=== PATIENT | male | born 1955 | race Caucasian/White ===

== ENCOUNTER → 2022-08-31 | Outpatient (CLI) | payer MEDICARE, BC, SELFPAY | END | disposition home or self-care (01) | PROVIDERS: PCP Family Medicine | DX: I49.3 Ventricular premature depolarization (principal); R00.2 Palpitations; R94.31 Abnormal electrocardiogram [ECG] [EKG]; R07.89 Other chest pain | CPT/HCPCS: 93225; 93226 ==

== ENCOUNTER → 2022-09-05 | Outpatient (CLI) | payer MEDICARE, BC, SELFPAY ==
--- NOTE | 2022-09-05 17:30 | STRESSREP_ITS ---
Stress Test Report 67-year-old man with a history of chest pain. Resting EKG demonstrates normal sinus rhythm with a rate of 67 bpm normal intervals are noted resting blood pressure is 124/84 mmHg. The patient exercised according to the regular Valdemar protocol for total duration of 9 minutes. The maximum heart rate attained was 155 bpm which was 102% of max i mpacted heart rate the maximum workload was 10.1 metabolic equivalents. At rest there were no ST or T wave changes noted to suggest ischemia. At peak exercise there was 1.[address] depression noted in leads II, III and aVF and V5. The above is suggestive but not diagnostic of ischemia. During recovery there was improvement in the EKG changes by 1 minute. Frequent premature ventri cular complexes were noted during recovery. The peak blood pressure was 160/72 mmHg with a rate-pressure product of 24,000. No clinical angina was noted. Conclusion: Exercise stress test with EKG changes noted suggestive but not diagnostic of ischemia at a high workload. No clinical angina noted.
== END | disposition home or self-care (01) ==
PROVIDERS: PCP Family Medicine
DX: I49.3 Ventricular premature depolarization (principal); R00.2 Palpitations; R94.31 Abnormal electrocardiogram [ECG] [EKG]; R07.89 Other chest pain
CPT/HCPCS: 93017

== ENCOUNTER → 2024-01-17 | Outpatient (CLI) | payer MEDICARE, SELFPAY | END | disposition home or self-care (01) | PROVIDERS: PCP Internal Medicine; Referring Provider Internal Medicine Cardiovascular Disease; Visit Provider Internal Medicine Cardiovascular Disease | DX: R94.31 Abnormal electrocardiogram [ECG] [EKG] (principal); I49.3 Ventricular premature depolarization; Z79.899 Other long term (current) drug therapy | CPT/HCPCS: 93005 ==

== ENCOUNTER → 2024-02-14 | Outpatient (CLI) | payer MEDICARE, SELFPAY ==
--- NOTE | 2024-02-15 11:50 | STRESSREP_ITS ---
Stress Test Report Date: 02/14/2024 Procedure: Exercise tolerance test Indications: Abnormal EKG Consent: Per the patient Procedure: The patient exercised on a Valdemar protocol for 9 minutes achieving a peak heart rate of 151 bpm (100% predicted maximal heart rate) with a peak blood pressure 170/70 mmHg and a peak MET capacity of approximately 10.1 MET's. The baseline ECG demonstrated normal sinus rhythm. The peak exercise ECG demonstrated sinus tachycardia with about 2 mm horizontal to downsloping ST depressions in the inferior and lateral leads. [There were no cardiac dysrhythmias pretest, during exercise, or recovery]. The functional capacity was considered excellent for age. The patient had no complaint of chest discomfort during exercise or recovery. The examination was discontinued secondary to dyspnea. Impression: 1. Technically adequate (percent predicted maximal heart rate greater than 85%) exercise tolerance test 2. Stress test is negative for exercise-induced chest pain. 3. Stress test test positive for exercise-induced EKG changes of ischemia. 4. Functional capacity is excellent for age This note was generated with [employer] software. It may contain incorrect words, spelling, and punctuation that were not noted in checking the note before signing.
== END | disposition home or self-care (01) ==
LOC: CVS 10:00
PROVIDERS: PCP Internal Medicine; Referring Provider Internal Medicine Cardiovascular Disease; Visit Provider Internal Medicine Cardiovascular Disease
DX: I49.3 Ventricular premature depolarization (principal); R00.2 Palpitations; R94.31 Abnormal electrocardiogram [ECG] [EKG]; Z79.899 Other long term (current) drug therapy
CPT/HCPCS: 93017

== ENCOUNTER 2024-04-28 08:27 | Day surgery (SDC) | payer MEDICARE, SELFPAY ==
[2024-04-17 09:38] LABS: Absolute Lymphocyte Count 1.95 X10^3/uL (0.83-4.51); Absolute Neutrophil Count 2.5 X10^3/uL (2.0-7.7); Basophil# 0.05 X10^3/uL; Basophil% 0.9 % (0-1); Eosinophil# 0.39 X10^3/uL; Eosinophils% 7.3 % (0-5); Hematocrit 42.7 % (40-54); Lymphocyte # 1.95 X10^3/ul (0.83-4.51); Lymphocyte % 36.3 % (19-41); Mean Corp Hgb Conc 32.8 g/dL (32-36); Mean Corpuscular Hgb 30.5 pg (27.0-32.0); Mean Platelet Vol. 10.8 fl (6.2-12.0); Monocyte# 0.48 X10^3/uL; Monocyte% 8.9 % (0-10); NRBC Flagged by Analyzer 0 % (0-5); Neutrophil # 2.48 X10^3/uL (2.7-7.7); Neutrophil % 46.2 % (47-70); Platelet Count 192 K/mm3 (150-450); RBC Distribution Width CV 13.1 % (11.6-14.6); RBC Distribution Width SD 44.3 fl (35.1-43.9); Red Blood Count 4.59 M/mm3 (4.6-6.2); White Blood Count 5.4 K/mm3 (4.4-11.0)
[2024-04-17 10:19] LABS: Anion Gap 5 (5-15); BUN 16 mg/dL (7-18); BUN/Creat Ratio 21.9 RATIO (10-20); Calcium,Total 9.5 mg/dL (8.5-10.1); Chloride 108 mmol/L (98-107); Creatinine, Serum 0.73 mg/dL (0.70-1.30); EST Glomerular Filtration Rate 113 mL/min (>60); Est Glom Filt Rate - Afr Amer 137 mL/min (>60); Glucose 96 mg/dL (74-106); Potassium 3.9 mmol/L (3.5-5.1); Sodium Level 142 mmol/L (136-145)
--- NOTE | 2024-04-24 10:22 | RAD_ITS ---
STUDY: X-RAY CHEST REASON FOR EXAM: Male, 68 years old. Preprocedural evaluation. TECHNIQUE: Frontal and lateral views of the chest. COMPARISON: None. FINDINGS: Hyperinflation with scattered healed parenchymal granulomatous calcifications. There is no demonstrated pleural abnormality. Mild cardiomegaly. Normal mediastinum and poly. Normal visualized pulmonary arteries. Aortic tortuosity with calcification. Diffuse moderate thoracic spondylosis with osteopenia. Normal visualized ribs, clavicles, and shoulders. No abnormality of the visualized soft tissue structures of the upper abdomen. RAD/Chest PA and Lateral IMPRESSION: Cardiomegaly with hyperinflation and no acute or active cardiopulmonary disease. Electronically Signed: Chris Montaño MD at 10:55 EDT ,
--- NOTE | 2024-04-24 14:09 | PCM.HP.BLA ---
History and Physical Date of Admission: 04/28/24 Micha Cano is a 68 year old gentleman that presents today for a diagnostic heart catheterization for an abnormal stress test. He had been following with [facility] cardiology for PVCs. He had been seen by EP for this. In September 2022 his atenolol was stopped and he was started on diltiazem. Patient has continued to have PVC burden that was noted on his Apple Watch. With his model and dye person at [facility] it was recommended that he be reevaluated by EP. Patient is wishing to establish here in [place] since they recently moved. With his symptoms his atenolol was decreased to 12 and half milligrams once a day and he was started on low-dose flecainide 50 mg twice daily. He is noted to have a PVC or burden of 2%. Patient did undergo a stress test here at [facility] in February 2024. Patient was able to walk 10 METS on the treadmill. He was noted to have 2 mm horizontal to downsloping ST depressions in the inferior and lateral leads. No images were obtained with this. Echocardiogram in August 2022 demonstrated an ejection fraction of 64%. No valvular abnormalities were noted. Recent lipid panel from PCP demonstrated a total cholesterol of 116, HDL 40, LDL 62. Pt notes that starting in October of 2023 he was having an increase burden in PVCs. He was needing to increase his dose of atenolol. He was then started on a low dose of flecainide this has decreased his PVC burden. He saw EP at [facility], he stopped the atenolol and continued with the flecainide. Per pt stress test was ordered for increase in PVC burden. He does not have any chest pain/heaviness/pressure. He does not have any worsening SOB with exertion. He does sometimes have positional dizziness. He thinks that this is related to his flomax. He does not have any claudication or edema. No Known Allergies Allergy (Unverified 03/17/24 10:24) Medication Instructions Recorded Confirmed Type atorvastatin 40 mg tablet 40 mg PO DAILY 03/17/24 03/17/24 History flecainide 50 mg tablet 50 mg PO Q12H 03/17/24 03/17/24 History meloxicam 15 mg tablet 15 mg PO DAILY PRN 03/17/24 03/17/24 History tamsulosin 0.4 mg capsule (Flomax) 0.4 mg PO QHS 03/17/24 03/17/24 History PFSH Medical History (Updated 03/17/24 @ 10:47 by Jane ALLISON, PA) Hyperlipidemia BPH (benign prostatic hyperplasia) PVC (premature ventricular contraction) Surgical History (Updated 03/17/24 @ 10:43 by Jane ALLISON, PA) H/O knee surgery H/O left inguinal hernia repair Family History (Updated 03/17/24 @ 10:45 by Jane ALLISON, PA) Mother Cancer Father Cancer Social History (Updated 03/17/24 @ 10:46 by Jane ALLISON, PA) household members: spouse Smoking Status: Never smoker alcohol intake: current alcohol intake frequency: holidays/special occasions only ROS Const Const: Negative for fatigue, weakness, headache(s), frequent falls, excessive sweating, weight gain or weight loss Eyes Eyes: Negative for blind spots, loss of peripheral vision, transient loss of vision, blurry vision, change in vision or double vision ENT ENT: Negative for headache(s), dizziness, tinnitus, Nosebleed/epistaxis or balance problems Cardio Chest Pain: No Palpitations: Yes Edema: None Muscle aches with walking: None Resp Respiratory: Negative for SOB with activity, SOB at rest, SOB orthopnea\SOB lying down or Cough GI GI: Negative nausea, vomiting, heartburn, bloating, vomiting blood/hematemesis, bright, red blood in stools or black,tarry stools : Negative for hematuria Musc Musc: Negative for muscle aches/ myalgia, muscle weakness, joint pain or balance problems Skin Skin: Negative rash or wounds Neuro Neuro: Negative for dizziness, lightheadedness, near syncope, syncope, orthostatic symptoms, frequent falls, headache(s), weakness, confusion, memory loss, restless legs, blurry vision or double vision [place] Hematologic/Lymphatic: Negative for easy bleeding or easy bruising Endo Endo: Negative for fatigue, cold intolerance, heat intolerance or excessive sweating Psych Psych: Negative for anxiety or depression Allergy Allergy/Immunology: Negative for rash Cardiology Exam Const Appearance: cooperative, healthy appearing, comfortable, no acute distress and well developed Orientation: alert, awake and oriented x3 Head Head: normal to inspection Ears: hearing grossly normal bilaterally Nose: external nose normal Face and Sinus: face symmetric Mouth: oral mucosae normal, lip normal and moist mucous membranes Eyes General: appearance normal, both eyes and all related structures Eyelids: eyelids normal Conjunctivae: conjunctivae normal Pupils: PERRL EOM: EOM intact bilaterally Neck Neck: normal visual inspection and trachea midline; Negative no JVD Carotids: Negative bruit Chest Chest inspection: normal inspection of the chest Auscultation: Bilateral: Clear to Auscultation Cardio Palpation: normal PMI Rate: regular rate Rhythm: regular rhythm Heart sounds: S1 normal and S2 normal; Negative rub, gallop or murmur GI GI: soft, no hepatosplenomegaly and bowel sounds present Neuro General: patient alert, patient awake, patient oriented x3 and CN's II-XI intact bilaterally Extremities Pulses: Normal: Right Posterior Tibial Pulse, Left Posterior Tibial Pulse, Right Radial Pulse and Left Radial Pulse Lower Extremity Edema: None: Bilateral Psych Psychological: normal affect Stress Test Report Date: 02/14/2024 Procedure: Exercise tolerance test Indications: Abnormal EKG Consent: Per the patient Procedure: The patient exercised on a Valdemar protocol for 9 minutes achieving a peak heart rate of 151 bpm (100% predicted maximal heart rate) with a peak blood pressure 170/70 mmHg and a peak MET capacity of approximately 10.1 MET's. The baseline ECG demonstrated normal sinus rhythm. The peak exercise ECG demonstrated sinus tachycardia with about 2 mm horizontal to downsloping ST depressions in the inferior and lateral leads. [There were no cardiac dysrhythmias pretest, during exercise, or recovery]. The functional capacity was considered excellent for age. The patient had no complaint of chest discomfort during exercise or recovery. The examination was discontinued secondary to dyspnea. Impression: 1. Technically adequate (percent predicted maximal heart rate greater than 85%) exercise tolerance test 2. Stress test is negative for exercise-induced chest pain. 3. Stress test test positive for exercise-induced EKG changes of ischemia. 4. Functional capacity is excellent for age Assessment and Plan Assessment and Plan (1) Abnormal stress test: Status: Acute Plan: (3) Hyperlipidemia: Status: Acute Plan: This is managed by his primary care doctor. He will continue with his current dose of atorvastatin. Orders: Assessment & Plan Assessment/Plan (1) Abnormal stress test: (2) BPH (benign prostatic hyperplasia): (3) Hyperlipidemia: PLAN: Plan Patient did have ST changes on his stress test. Because he is on flecainide would like to assure that this is not related to ischemia. Would like to pursue a diagnostic heart catheterization. Patient is agreeable to proceed. His PVC burden has been managed by his production statistical clerk. He will continue with his current dose of flecainide. Because he does have an abnormal stress test and if he is to continue with his flecainide would like to pursue a diagnostic heart catheterization to assess for any evidence of blockage that would be contraindicated with his flecainide. Follow-up/plan of care will be based upon findings.
[2024-04-27 12:33] VITALS: BMI 25.7
--- NOTE | 2024-05-05 13:15 | CL.D_ITS ---
Patient Name: KIMBERLY FLOYD Study Date: 04/28/2024 Performing: Tina Carrion MD Ht: 76 inches 193.04 cm : 1955 Wt: 211.3 lbs 95.71 kg Age: 68 Gender: male BSA: 2.27 PROCEDURE(S) PERFORMED DC02-([id number])LHC/COR IC10-([id number])FFR, CORONARY OR GRAFT, INITIAL VESSEL CLINICAL PROFILE AND INDICATIONS Heart Failure: None Stress/Imaging Standard Exercise Stress Test: Yes Result: Positive Intermediate Risk CAD Presentations: No Sxs, no angina. CONCLUSIONS 50-60% Mid LAD. iFR 0.94, FFR 0.92 RECOMMENDATIONS Medical therapy Risk factor modification DESCRIPTION OF PROCEDURE The patient arrived to the procedure lab. The risks and benefits of the procedure as well as a full description of our services here and current unavailability of surgical backup were fully explained to the patient and/or their significant other prior to the catheterization. The Timeout was completed, verifying the correct patient and procedure. The patient's procedural site was prepped and draped in the usual fashion. Local anesthetic was given subcutaneously to right radial region with Lidocaine 2%. Using a modified Seldinger technique, arterial access was obtained via the right radial artery, a 6Fr sheath was inserted. Left Coronary Artery selective angiography was performed in multiple views using a 5 Fr. 4.0 [place] catheter. Right Coronary Artery selective angiography was then performed in multiple views using a 5 Fr. 4.0 [place] catheter.The arterial sheath was pulled and a TR Band was applied for hemostasis CORONARY ANGIOGRAPHY DOMINANCE: Right Dominant LEFT HEART ASSESSMENT Left Ventricular Ejection Fraction: Not assessed LEFT MAIN: Angiographically normal LEFT ANTERIOR DESCENDING ARTERY: LAD: Tubular 60% Mid lesion in LAD CIRCUMFLEX ARTERY: Angiographically normal RIGHT CORONARY ARTERY: RCA: Luminal Irregularities 10% Mid lesion in RCA COMPLICATIONS No Complications PROCEDURE MEDICATIONS Fentanyl 50 mcg IV Versed 1 mg IV Oxygen: 2 L/min via nasal cannula Aspirin (325mg) 1 Tabs PO 04/28/2024 08:48:09 Adenosine drip for FFR 32.4 ml IV @ 04/28/2024 10:13:40 Heparin given IA 04/28/2024 09:50:10 Heparin 5000 unit(s) IV 04/28/2024 10:00:03 Verapamil 2.5mg, Ntg 200mcgs, 2000 units of Heparin given IA 04/28/2024 09:50:10 IV Bolus: .9 NaCl 250 ml total 04/28/2024 09:54:09 SUMMARY OF HEMODYNAMIC DATA Time AIR REST ECG 08:47:15 AO 107/72 (89) SA 09:55:32 Signed By Tina Carrion MD On 05/05/2024 13:15:22 Tina Carrion MD
[2024-05-27 10:13] LABS: ACT Activated Clotting Time 189 sec (74-137)
== END 2024-04-28 13:20 | disposition home or self-care (01) ==
PROVIDERS: Physician Assistant Medical; PCP Internal Medicine; Referring Provider Internal Medicine Cardiovascular Disease; Visit Provider Internal Medicine Cardiovascular Disease
DX: R94.39 Abnormal result of other cardiovascular function study (principal); E78.5 Hyperlipidemia, unspecified; N40.0 Benign prostatic hyperplasia without lower urinary tract symptoms; Z79.899 Other long term (current) drug therapy
CPT/HCPCS: 36415; 71046; 80048; 85025; 85347; 93454; 93571; 99152; 99153; J0153; J7040; Q9967; C1769; C1887; C1894

== ENCOUNTER → 2024-12-07 | Outpatient (CLI) | payer MEDICARE, SELFPAY ==
--- NOTE | 2024-12-07 13:27 | STRESSREP ---
Stress Test Report Exercise myocardial perfusion stress test. 69-year-old man with a history of chest pain Stress protocol: Resting EKG demonstrates normal sinus rhythm with a rate of 68 bpm resting blood pressure is 130/78 mmHg. The patient exercised according to the regular Valdemar protocol for a total duration of 8 minutes and 17 seconds attaining a maximum heart rate of 142 bpm which was 95% of maximum predicted heart rate; the maximum workload was 10.1 metabolic equivalents. At rest there were no ST or T wave changes noted to suggest ischemia and at peak exercise [address] depression were noted in lead V5 and V6 suggestive but not diagnostic of ischemia. In the immediate post recovery. The changes became upsloping. No chest pain was noted but shortness of breath was present. The peak blood pressure was 162/72 with a rate-pressure product of 23,000. Myocardial perfusion protocol. 12.0 mCi of technetium 99m sestamibi was injected at rest. The patient exercised according to regular Valdemar protocol for total duration of 8 minutes and 17 seconds and at peak exercise 36 mCi of technetium 99m sestamibi was injected stress images were obtained stress and rest images were reconstructed in comparing the short axis vertical long and horizontal long axis. Gated images were also obtained. Perfusion SPECT analysis: Review of the stress images demonstrate normal uptake of tracer noted in all areas of the myocardium. The resting images similarly demonstrate normal uptake of tracer noted in all areas of the myocardium. No areas of reversibility are noted to suggest ischemia no previous infarct was noted. Gated SPECT analysis: The gated ejection fraction is 71. Conclusion: Normal exercise myocardial perfusion stress test at a high workload Preserved ejection fraction.
== END | disposition home or self-care (01) ==
PROVIDERS: PCP Family Medicine; Referring Provider Physician Assistant Medical; Visit Provider Physician Assistant Medical
DX: I25.10 Atherosclerotic heart disease of native coronary artery without angina pectoris (principal); R06.09 Other forms of dyspnea
CPT/HCPCS: 78452; 93017; A9500; A4216